=== PATIENT | female | born 1990 | race Caucasian/White ===

== ENCOUNTER 2017-09-28 09:57 | Emergency (ER) | payer OTHER ==
[~2017-09-28] VITALS: Ht 180.3 cm; Wt 240.0 kg
[~2017-09-28 09:57] MED LIST: ALBU1AER INH; DICL50 PO; HYDR-3533 PO; PRED20 PO; Z.0.BCPILL PO; ZITH250T PO
[2017-09-28 09:58] VITALS: BP 147/83; PULSE 98; RESP 20; TEMP 98.1; O2SAT 99
--- NOTE | 2017-09-28 10:23 | PD ---
HPI Chief Complaint: Skin Problem Time Seen by Provider: 10:15 Travel History International Travel<30 days: No Contact w/Intl Traveler<30days: No Traveled to known affect area: No History of Present Illness HPI 26-year-old female presents to the emergency department with redness, crusting, drainage from bilateral nipple piercings 4 days. Had her nipples pierced September 03. Denies fever, vomiting. Denies nipple discharge. Has been taking ibuprofen for symptom management. Last took ibuprofen at approximately 5 AM and that she took 1200 mg. I did discuss ibuprofen dosages and she verbalized understanding and agreement. Rates pain 6/10. Worse with rubbing up against clothing. Better at rest. Describes it as a stabbing sensation. Up -to-date on tetanus vaccination. No known allergies. Has no other medical complaints. No other modifying factors or associated signs and symptoms. PFSH Past Medical History Anemia: Yes Blood Disorders: No Depression: Yes Cancer: No Diminished Hearing: No Psychiatric: Yes Immunizations Current: Yes Seizures: No Thyroid Disease: Yes Ulcer: No ?: Not LMP: 09/13/17 : 1 Para: 1 Past Surgical History Section: Yes Cholecystectomy: Yes Endocrine Surgery: Yes (HX OF THYROID PROBLEMS) Other Surgery: No Social History Alcohol Use: Yes Tobacco Use: No Substance Use: No Allergies-Medications (Allergen,Severity, Reaction): Coded Allergies: No Known Allergies (Verified Adverse Reaction, Unknown, 09/28/17) Reported Meds & Prescriptions Reported Meds & Active Scripts Active Diflucan (Fluconazole) 150 Mg Tab 150 Mg PO ONCE Ibuprofen 800 Mg Tab 800 Mg PO Q6HR PRN Bactrim DS (Sulfamethoxazole-Trimethoprim) 800-160 Mg Tab 1 Tab PO BID 10 Days Keflex (Cephalexin) 500 Mg Cap 500 Mg PO Q6H 10 Days Review of Systems Except as stated in HPI: all other systems reviewed are Neg Physical Exam Narrative GENERAL: Well-nourished, well-developed female female patient, in no acute distress; afebrile, nontoxic-appearing SKIN: Warm and dry. HEAD: Atraumatic. Normocephalic. EYES: Pupils equal and round. No scleral icterus. No injection or drainage. ENT: Mucosa pink and moist. Airway patent. NECK: Trachea midline. BREAST: Bilateral breasts without with tenderness on palpation; breast is without erythema or edema. Bilateral nipple piercings noted; crusted, minimal purulent drainage noted to bilateral piercings, left worse than right; No nipple discharge; bilateral nipples are without erythema, edema. No skin dimpling. No bilateral axillary lymphadenopathy. CARDIOVASCULAR: Regular rate. RESPIRATORY: No accessory muscle use. GASTROINTESTINAL: Obese. MUSCULOSKELETAL: No obvious deformities. No clubbing. No cyanosis. No edema. NEUROLOGICAL: Awake and alert. Oriented 3. No obvious cranial nerve deficits. Motor grossly within normal limits. Normal speech. PSYCHIATRIC: Appropriate mood and affect; insight and judgment normal. Data Data Last Documented VS Vital Signs Date Time Temp Pulse Resp B/P (MAP) Pulse Ox O2 Delivery O2 Flow Rate FiO2 09/28/17 10:55 09/28/17 09:58 98.1 98 20 99 Room Air Orders Orders Wound Care (09/28/17 10:24) Ed Discharge Order (09/28/17 10:44) [facility] Medical Decision Making Medical Screen Exam Complete: Yes Emergency Medical Condition: Yes Medical Record Reviewed: Yes Differential Diagnosis Infected piercings, wound infection, medical clearance Narrative Course 26-year-old female physical exam consistent with bilateral pierced nipple infections. Patient is afebrile and nontoxic appearing. Denies fever, vomiting. Tetanus is up-to-date. Wound care provided. Keflex, Bactrim prescribed for him. Patient states she gets yeast infections with antibiotic use. Diflucan prescribed for home. Instructed patient to follow up with primary care provider. Patient verbalizes understanding and agreement with treatment plan. Patient is medically cleared and stable for discharge. Discussed reasons to return to the emergency department. Patient agrees with treatment plan. The patients vital signs are stable and the patient is stable for outpatient follow-up and treatment. Patient discharged home, stable and in no acute distress. Diagnosis Primary Impression: Pierced nipple infection Referrals: [facility] Primary Care Physician Patient Instructions: Acute Wound Care (DC), General Instructions, Wound Infection (ED) Departure Forms: Tests/Procedures, Work Release Enter return to work date: Sep 29, 2017 Additional Instructions: Keep area clean and dry Topical antibiotic ointment as directed and as needed for wound care Antibiotics as prescribed. Follow-up with primary care provider Return to the emergency department immediately with worsening of symptoms Med/Other Pt SpecificInfo: Prescription(s) given Scripts Fluconazole (Diflucan) 150 Mg Tab 150 MG PO ONCE for Infection, #1 TAB 0 Refills Prov: Cassandra Marie 09/28/17 Ibuprofen (Ibuprofen) 800 Mg Tab 800 MG PO Q6HR Y for PAIN, #30 TAB 0 Refills Prov: Cassandra Marie 09/28/17 Sulfamethoxazole-Trimethoprim (Bactrim DS) 800-160 Mg Tab 1 TAB PO BID for Infection for 10 Days, #20 TAB 0 Refills Prov: Cassandra Marie 09/28/17 Cephalexin (Keflex) 500 Mg Cap 500 MG PO Q6H for Infection for 10 Days, #40 CAP 0 Refills Prov: Cassandra Marie 09/28/17 Disposition: 01 DISCHARGE HOME Condition: Stable Cassandra Marie Sep 28, 2017 10:23
[2017-09-28] MEDS ORDERED: BACT800T5 PO (10:42)
[2017-09-28] MEDS ORDERED: IBUP1TAB7 PO (10:42)
[2017-09-28] MEDS ORDERED: CEPH-460 PO (10:42)
[2017-09-28] MEDS ORDERED: DIFL150T PO (10:48)
== END 2017-09-28 10:55 | disposition home or self-care (01) ==
LOC: NEPD 09:57
DX: N61.0 Mastitis without abscess (principal); D64.9 Anemia, unspecified; F32.9 Major depressive disorder, single episode, unspecified; E07.9 Disorder of thyroid, unspecified
CPT/HCPCS: 99284